=== PATIENT | male | born 1990 | race Caucasian/White ===

== ENCOUNTER 2018-11-25 22:26 | Emergency (ER) | payer OTHER ==
[2018-11-25 22:38] VITALS: BP 127/76
--- NOTE | 2018-11-25 22:51 | ED Physician Documentation ---
PD HPI HEENT - Stated complaint Stated Complaint: FACE PX - Chief complaint Chief Complaint: Heent - History obtained from History obtained from: Patient - History of Present Illness Timing - onset: Today Timing - duration: Hours (1-2) Timing - details: Abrupt onset (a pole end struck him in face, upper right cheek, with laceration. Not sure if needed sutures, so here for evaluation.) Location: Other (right upper cheek.) Associated symptoms: Other (no injury to the eye itself.) Review of Systems Constitutional: denies: Fever, Chills Eyes: denies: Loss of vision, Decreased vision, Irritation Nose: denies: Rhinorrhea / runny nose, Congestion Throat: denies: Sore throat Respiratory: denies: Cough Neurologic: denies: Altered mental status, Headache PD PAST MEDICAL HISTORY - Past Medical History Past Medical History: No - Present Medications Home Medications: Ambulatory Orders Medication Instructions Recorded Confirmed No Known Home Medications 11/25/18 11/25/18 - Allergies Allergies/Adverse Reactions: Allergies Allergy/AdvReac Type Severity Reaction Status Date / Time No Known Drug Allergies Allergy Verified 11/25/18 22:38 PD ED PE NORMAL - Vitals Vital signs reviewed: Yes - General General: Alert and oriented X 3, No acute distress, Well developed/nourished - HEENT HEENT: PERRL, EOMI, Other (right upper cheek with small 1 cm lac horizontal in skin line, without FB nor current bleeding. Mild bruising around it. ) - Neck Neck: Supple, no meningeal sign, No bony TTP - Derm Derm: Normal color, Warm and dry - Neuro Neuro: No motor deficit, No sensory deficit (normal sensation in cheek, lip and gums. ) Results - Vitals Vitals: Oxygen O2 Source Room air PD MEDICAL DECISION MAKING - ED course Complexity details: considered differential (not too big and edges are close, so can be closed with tape/glue.), d/w patient Departure - Departure Disposition: 01 Home, Self Care Clinical Impression: Facial laceration Qualifiers: Encounter type: initial encounter Qualified Code(s): S01.81XA - Laceration without foreign body of other part of head, initial encounter Condition: Stable Record reviewed to determine appropriate education?: Yes Instructions: ED Laceration Facial Skin Glue Comments: Keep the area clean and dry. Allow the Steri-Strips and glue to fall off on their own after several days. (Brief showering is okay). You can use some cool towels or ice to the area for swelling tonight. Tylenol ibuprofen if needed for pains. Recheck if signs of infection. Discharge Date/Time: 11/25/18 23:11
== END 2018-11-25 23:11 | disposition home or self-care (01) ==
LOC: ED 22:26
DX: S01.412A Laceration without foreign body of left cheek and temporomandibular area, initial encounter (principal); W22.8XXA Striking against or struck by other objects, initial encounter
CPT/HCPCS: 99282